=== PATIENT | male | born 1995 | race Caucasian/White ===

== ENCOUNTER 2019-10-14 20:08 | Emergency (ER) | payer MEDICAID ==
[2019-10-14] MEDS ORDERED: Diphtheria,Pertussis(Acell),Tetanus Vaccine 0.5 ML SDV inactive IM ONE (20:57)
[2019-10-14] MEDS ORDERED: Amoxicillin/Clavulanate K 875-125 MG Tab ONE (21:00)
--- NOTE | 2019-10-14 22:36 | ER ---
REASON FOR EMERGENCY ROOM VISIT: Dog bite with laceration to left hand. HISTORY: This 24-year-old man was accidentally bit by his bulldog when he tried to break up a fight between his bulldog and his husky. When he tried to break the fight up , his hand got caught on a canine tooth of his bulldog. It was not an intentional bite according to the patient. He suffered a laceration of the dorsum of the left hand. He states that both dogs are up to date on their rabies shots, but this was nonetheless reported to law enforcement. His last tetanus toxoid was 9-10 years ago. PAST MEDICAL HISTORY: Reviewed, unremarkable. ALLERGIES: NONE TO MEDICATIONS. MEDICATIONS: None. PHYSICAL EXAMINATION: His left hand reveals a 4 cm curvilinear laceration into the subcutaneous tissue with no tendon exposed. The laceration is located on the dorsum of his left hand overlying the 5th metacarpal. Skin edges are oozing, but appear to be viable. There is no evidence of foreign body in the wound. Distally, his intrinsic muscle function and extensor and flexor function are intact. His sensation is intact. IMPRESSION: Laceration in the left hand secondary to dog bite. EMERGENCY ROOM COURSE: He was given a Td booster. His hand was soaked in Hibiclens and sterile water for approximately 20 minutes or so. The wound was then painted with Betadine, and approximately 10 mL of 1% xylocaine without epinephrine was used to achieve local anesthetic. The wound was inspected and no tendon was exposed and no foreign body was present. The skin edges were approximated. The wound was 4 cm in length and curvilinear. There was no nonviable tissue. The wound was approximated with 6 interrupted 3-0 monofilament nylon sutures. Antibiotic ointment was applied over which a sterile occlusive dressing was applied. He was instructed regarding wound care and to return to clinic in 7-10 days for suture removal. Symptoms and signs of infection were discussed with him. Because this is a dog bite involving the hand, I advised prophylactic antibiotics as that has been shown to be effective and minimize in significantly lowering the incidence of infection post dog bite. He agreed with this plan. All questions were answered. He was given a prescription for Augmentin 875 mg and told to take 1 tablet every 12 hours x6 doses. He understands and agrees with this. RADHA/FLETCHER /[id number] SHON
== END 2019-10-14 21:30 | disposition home or self-care (01) ==
LOC: LB.ED 20:08
DX: S61.452A Open bite of left hand, initial encounter (principal); Z23 Encounter for immunization; W54.0XXA Bitten by dog, initial encounter
CPT/HCPCS: 12002; 90471; 90715; 99283; A9270

== ENCOUNTER 2022-06-09 19:21 | Emergency (ER) | payer MEDICAID ==
[2022-06-09] MEDS ORDERED: Ketorolac 60 MG/2 ML SDV IM ONE (19:30)
[2022-06-09] MEDS ORDERED: traMADol 50 MG Tab ONE (20:00)
== END 2022-06-09 20:25 | disposition home or self-care (01) ==
LOC: LB.ED 19:21
DX: S59.911A Unspecified injury of right forearm, initial encounter (principal)
CPT/HCPCS: 73090-RT; 96372; 99283; A9270-GY; J1885